=== PATIENT | male | born 1985 | race Caucasian/White ===

== ENCOUNTER 2019-07-30 20:19 | Emergency (ER) | payer MEDICAID ==
[~2019-07-30] VITALS: Ht 175.3 cm; Wt 61.2 kg
[2019-07-30 20:23] VITALS: BP_SYST 121
--- NOTE | 2019-07-30 20:34 | NUR ---
Patient to ER bed 20 for evaluation. Side rails up. Report given to Merlyn BONILLA.
--- NOTE | 2019-07-30 20:40 | NUR ---
ER at bedside examining patient.
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
--- NOTE | 2019-07-30 20:45 | NUR ---
patient has a large laceration from the top of his forehead, approx 13 cm x 3cm x 0.5 cm. laceration has stopped bleeding. [address] Talbot
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
[2019-07-30] MEDS ORDERED: LIDOCAINE 1% 10 MG/ML, 20 ML MDV INJ ONE (22:15)
[2019-07-30] MEDS ORDERED: BACITRACIN ZINC 15 GM TOPICAL OINTMENT TP ONE (22:30)
[2019-07-30] MEDS ORDERED: BACITRACIN 1 GM OINT TP ONE (22:44)
[2019-07-30 22:50] VITALS: BP_SYST 121
--- NOTE | 2019-07-30 22:50 | NUR ---
Patient given written and verbal discharge instructions and verbalizes understanding. ER MD discussed with patient the results and treatment provided. Patient in stable condition. ID arm band removed. IV catheter removed intact and dressing applied, no active bleeding. Rx of [place]-5, Kelflex given. Patient educated on pain management and to follow up with PMD.Pain Scale 0/10. Opportunity for questions provided and answered. Medication side effect fact sheet provided.
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
== END 2019-07-30 23:33 | disposition home or self-care (01) ==
LOC: SED 20:19
DX: S01.81XA Laceration without foreign body of other part of head, initial encounter (principal); M19.90 Unspecified osteoarthritis, unspecified site; W25.XXXA Contact with sharp glass, initial encounter; Y93.89 Activity, other specified; Y92.89 Other specified places as the place of occurrence of the external cause; Y99.8 Other external cause status
CPT/HCPCS: 70450-TC; 72125-TC; 99284

== ENCOUNTER 2019-08-14 23:53 | Emergency (ER) | payer MEDICAID ==
[~2019-08-14] VITALS: Ht 175.3 cm; Wt 61.2 kg
--- NOTE | 2019-08-15 | NUR ---
Patient to ER bed 4 to gown for evaluation. Side rails up.
[2019-08-15 00:10] VITALS: BP_SYST 117
--- NOTE | 2019-08-15 00:30 | NUR ---
Dr. Allen bedside for Pt eval
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
[2019-08-15 01:07] VITALS: BP_SYST 117
--- NOTE | 2019-08-15 01:08 | NUR ---
Patient given written and verbal discharge instructions and verbalizes understanding. ER MD discussed with patient the results and treatment provided. Patient in stable condition. ID arm band removed. Patient educated on pain management and to follow up with PMD. Pain Scale 0. Opportunity for questions provided and answered. Medication side effect fact sheet provided.
== END 2019-08-15 01:08 | disposition home or self-care (01) ==
LOC: SED 23:53
DX: S01.81XD Laceration without foreign body of other part of head, subsequent encounter (principal); M19.90 Unspecified osteoarthritis, unspecified site; W25.XXXD Contact with sharp glass, subsequent encounter
CPT/HCPCS: 99281

== ENCOUNTER 2019-09-23 23:28 | Emergency (ER) | payer MEDICAID ==
[~2019-09-23] VITALS: Ht 175.3 cm; Wt 62.6 kg
[2019-09-23 23:30] VITALS: BP_SYST 140
--- NOTE | 2019-09-23 23:30 | NUR ---
Patient to ER bed 4 to gown for evaluation. Side rails up.
--- NOTE | 2019-09-23 23:36 | NUR ---
ER at bedside examining patient.
[2019-09-23] MEDS ORDERED: NACL 0.9% 1,000 ML IV ONE (23:38)
--- NOTE | 2019-09-23 23:43 | NUR ---
Dr. Mccurdy bedside for Pt eval
[2019-09-23] MEDS ORDERED: ONDANSETRON HCL 4 MG/2 ML VIAL IVP ONE (23:45)
--- NOTE | 2019-09-23 23:45 | NUR ---
Pt BIB family to ED C/O abd radiating to back for 3 weeks with some nausea as well No other injuries and or complaints noted VSS no s/s of acute distress Resting on gurney rails up
[2019-09-24 00:26] LABS: BASOPHILS % (AUTO) 0.2 % (0.0-2.0); EOSINOPHILS % (AUTO) 0.1 % (0.0-4.0); HEMATOCRIT 42.9 % (36-54); HEMOGLOBIN 14.4 g/dL (14.0-18.0); LYMPHOCYTES # (AUTO) 3.7 K/uL (1.0-5.5); LYMPHOCYTES % (AUTO) 30.9 % (20.5-51.5); MEAN CORPUSCULAR HEMOGLOBIN 32 pg (27-31); MEAN CORPUSCULAR HGB CONC 34 % (32-36); MEAN CORPUSCULAR VOLUME 95 fL (79.0-98.0); MONOCYTES % (AUTO) 8.4 % (1.7-9.3); NEUTROPHILS # (AUTO) 7.2 K/uL (1.8-7.7); NEUTROPHILS % (AUTO) 60.4 % (40.0-70.0); PLATELET COUNT (AUTO) 336 K/uL (130-430); RED CELL DISTRIBUTION WIDTH 13.8 % (9.0-15.0)
[2019-09-24 00:40] LABS: CALCIUM 9.5 mg/dL (8.4-11.0); CREATININE 0.73 mg/dL (0.55-1.30); POTASSIUM 3.5 mmol/L (3.5-5.1)
[2019-09-24 00:45] LABS: PROTHROMBIN TIME 10.4 SECS (9.5-12.5)
[2019-09-24 00:46] LABS: ALBUMIN 4.6 g/dL (3.4-4.8); TOTAL BILIRUBIN 0.3 mg/dL (0.0-1.0)
--- NOTE | 2019-09-24 01:00 | NUR ---
Pt resting comfortably in bed, no signs of acute distress. Will cont. to monitor.
[2019-09-24 01:47] LABS: BILIRUBIN,URINE NEGATIVE (NEGATIVE); BLOOD, URINE 1+ (NEGATIVE); CLARITY/URINE CLEAR (CLEAR); COLOR,URINE YELLOW (YELLOW); GLUCOSE,URINE NEGATIVE (NEGATIVE); KETONES,URINE NEGATIVE (NEGATIVE); LEUKOCYTE ESTERASE ,URINE NEGATIVE (NEGATIVE); NITRITE, URINE NEGATIVE (NEGATIVE); PROTEIN URINE NEGATIVE (NEGATIVE); UROBILINOGEN,URINE 0.2 (0.2-1.0)
[2019-09-24 01:51] LABS: BACTERIA,URINE FEW /HPF (None Seen); WBC,URINE 0-3 /HPF (0-3)
--- NOTE | 2019-09-24 02:00 | NUR ---
Pt resting comfortably in bed, no signs of acute distress. Will cont. to monitor.
--- NOTE | 2019-09-24 03:00 | NUR ---
Pt resting comfortably in bed, no signs of acute distress. Will cont. to monitor.
[2019-09-24 04:59] VITALS: BP_SYST 140
--- NOTE | 2019-09-24 04:59 | NUR ---
Patient given written and verbal discharge instructions and verbalizes understanding. ER MD Dr. Mccurdy discussed with patient the results and treatment provided. Patient in stable condition. ID arm band removed. IV catheter removed intact and dressing applied, no active bleeding. Patient educated on pain management and to follow up with PMD. Pain Scale 0/10. Opportunity for questions provided and answered. Medication side effect fact sheet provided.
== END 2019-09-24 04:59 | disposition home or self-care (01) ==
LOC: SED 23:28
DX: N50.89 Other specified disorders of the male genital organs (principal); R10.84 Generalized abdominal pain; M19.90 Unspecified osteoarthritis, unspecified site; K51.90 Ulcerative colitis, unspecified, without complications
CPT/HCPCS: 36415; 74176; 80053; 81000; 83690; 85025; 85610; 85730; 96374; 99284; J2405; J7030

== ENCOUNTER 2021-06-09 19:34 | Emergency (ER) | payer MEDICAID ==
[~2021-06-09] VITALS: Ht 175.3 cm; Wt 68.5 kg
[2021-06-09 19:40] VITALS: BP_SYST 108
[2021-06-09] MEDS ORDERED: AMOX-423 PO (23:54)
[2021-06-10 00:02] VITALS: BP_SYST 108
== END 2021-06-10 00:05 | disposition home or self-care (01) ==
LOC: SED 19:34
DX: S61.411A Laceration without foreign body of right hand, initial encounter (principal); S61.451A Open bite of right hand, initial encounter; W61.91XA Bitten by other birds, initial encounter; Y93.89 Activity, other specified; Y92.89 Other specified places as the place of occurrence of the external cause; Y99.8 Other external cause status
CPT/HCPCS: 99283

== ENCOUNTER 2021-07-03 23:30 | Emergency (ER) | payer MEDICAID ==
[~2021-07-03] VITALS: Ht 175.3 cm; Wt 68.5 kg
[~2021-07-03 23:30] MED LIST: AMOX-423 PO
[2021-07-03 23:43] VITALS: BP_SYST 151
--- NOTE | 2021-07-04 00:39 | NUR ---
Patient ambulatory to chair 1 for evaluation
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
--- NOTE | 2021-07-04 00:55 | NUR ---
ER Dr. Franz at bedside examining patient.
[2021-07-04] MEDS ORDERED: PRED20TA PO (01:01)
[2021-07-04] MEDS ORDERED: predniSONE 20 MG TABLET PO ONE (01:15)
[2021-07-04 01:27] VITALS: BP_SYST 151
--- NOTE | 2021-07-04 01:27 | NUR ---
Patient given written and verbal discharge instructions and verbalizes understanding. ER MD discussed with patient the results and treatment provided. Patient in stable condition. ID arm band removed. Rx of Prednisone given. Patient educated on pain management and to follow up with PMD. Pain Scale 0. Opportunity for questions provided and answered. Medication side effect fact sheet provided.
[2021-07-04] MEDS ORDERED: PANTOPRAZOLE SODIUM 40 MG TAB PO ONE (01:30)
== END 2021-07-04 01:27 | disposition home or self-care (01) ==
LOC: SED 23:30
DX: S64.01XA Injury of ulnar nerve at wrist and hand level of right arm, initial encounter (principal); Z79.899 Other long term (current) drug therapy; W45.8XXA Other foreign body or object entering through skin, initial encounter; Y93.89 Activity, other specified; Y92.89 Other specified places as the place of occurrence of the external cause; Y99.8 Other external cause status
CPT/HCPCS: 29125; 99283; J7512

== ENCOUNTER 2022-01-07 13:16 | Emergency (ER) | payer MEDICAID ==
[~2022-01-07] VITALS: Ht 175.3 cm; Wt 75.7 kg
[~2022-01-07 13:16] MED LIST changes: +PRED20TA PO
[2022-01-07 13:25] VITALS: BP_SYST 119
--- NOTE | 2022-01-07 13:25 | NUR ---
Placed in room 3 . Placed on school bus monitor, blood pressure machine and pulse oximeter. To gown for exam. Side rails up. Report given to IRENE KENNEY.
--- NOTE | 2022-01-07 13:43 | NUR ---
MD MENON AT BEDSIDE ASSESSING PT. Addendum: 01/07/22 at 1421 by [email or web address] MD LATHAM IS SEEING PT. MD MENON DID NOT ASSESS PT.
--- NOTE | 2022-01-07 14:21 | NUR ---
MD LATHAM ASSESSING PT.
--- NOTE | 2022-01-07 15:49 | NUR ---
PT TAKEN TO ULTRASOUND.
[2022-01-07 16:07] LABS: BILIRUBIN,URINE NEGATIVE (NEGATIVE); BLOOD, URINE NEGATIVE (NEGATIVE); CLARITY/URINE CLEAR (CLEAR); COLOR,URINE YELLOW (YELLOW); GLUCOSE,URINE NEGATIVE (NEGATIVE); KETONES,URINE NEGATIVE (NEGATIVE); LEUKOCYTE ESTERASE ,URINE NEGATIVE (NEGATIVE); NITRITE, URINE NEGATIVE (NEGATIVE); PH,URINE 7.5 (5.0-8.0); PROTEIN URINE NEGATIVE (NEGATIVE); UROBILINOGEN,URINE 0.2 (0.2-1.0)
[2022-01-07 17:23] VITALS: BP_SYST 119
--- NOTE | 2022-01-07 17:24 | NUR ---
Patient given written and verbal discharge instructions and verbalizes understanding. ER MD discussed with patient the results and treatment provided. Patient in stable condition. ID arm band removed. NO Rx given. Patient educated on pain management and to follow up with PMD. Pain Scale 0/10. Opportunity for questions provided and answered. Medication side effect fact sheet provided.
== END 2022-01-07 17:24 | disposition home or self-care (01) ==
LOC: SED 13:16
DX: N50.89 Other specified disorders of the male genital organs (principal); J45.909 Unspecified asthma, uncomplicated; Z87.19 Personal history of other diseases of the digestive system; Z79.52 Long term (current) use of systemic steroids; Z79.899 Other long term (current) drug therapy
CPT/HCPCS: 76870-TC; 81003; 99284

== ENCOUNTER 2022-12-08 00:54 | Emergency (ER) | payer MEDICAID ==
[~2022-12-08] VITALS: Ht 175.3 cm; Wt 77.1 kg
[2022-12-08 01:10] VITALS: BP_SYST 110
--- NOTE | 2022-12-08 01:18 | NUR ---
Pt placed in ER bed 3. Report given to IRENE Finch.
--- NOTE | 2022-12-08 01:20 | NUR ---
BRANDYN Hubbard at bedside examining patient.
[2022-12-08 02:21] LABS: CALCIUM 8.8 mg/dL (8.4-11.0); CREATININE 0.77 mg/dL (0.55-1.30)
[2022-12-08 02:26] LABS: ALBUMIN 3.9 g/dL (3.4-4.8); TOTAL BILIRUBIN 0.2 mg/dL (0.0-1.0)
[2022-12-08 02:33] LABS: PROTHROMBIN TIME 10.6 SECS (9.5-12.5)
[2022-12-08 02:35] LABS: BASOPHILS % (AUTO) 0.3 % (0.0-2.0); EOSINOPHILS # (AUTO) 0.1 K/uL (0.0-0.4); EOSINOPHILS % (AUTO) 0.7 % (0.0-4.0); HEMATOCRIT 40.2 % (36-54); HEMOGLOBIN 13.3 g/dL (14.0-18.0); LYMPHOCYTES # (AUTO) 4.1 K/uL (1.0-5.5); LYMPHOCYTES % (AUTO) 39.2 % (20.5-51.5); MEAN CORPUSCULAR HEMOGLOBIN 30 pg (27-31); MEAN CORPUSCULAR HGB CONC 33 % (32-36); MEAN CORPUSCULAR VOLUME 89 fL (79.0-98.0); MONOCYTES % (AUTO) 9.4 % (1.7-9.3); NEUTROPHILS # (AUTO) 5.3 K/uL (1.8-7.7); NEUTROPHILS % (AUTO) 50.4 % (40.0-70.0); PLATELET COUNT (AUTO) 209 K/uL (130-430); RED BLOOD CELL COUNT(AUTO) 4.51 MIL/uL (4.2-6.2); RED CELL DISTRIBUTION WIDTH 13.9 % (9.0-15.0); WHITE BLOOD COUNT (AUTO) 10.5 K/uL (4.8-10.8)
[2022-12-08] MEDS ORDERED: ONDA-8 TL (02:48)
[2022-12-08] MEDS ORDERED: OMEP40CA20 PO (02:48)
[2022-12-08 03:20] VITALS: BP_SYST 112
--- NOTE | 2022-12-08 03:21 | NUR ---
Pt C/O abdominal pain w/ bausea, vomitting Pt DC per MD's order DC instructionstions given to pt Pt verbalized understanding AOX4 VSS Able to make needs known NAD at this time Pt exited ED in stable gait
== END 2022-12-08 03:19 | disposition home or self-care (01) ==
LOC: SED 00:54
DX: K92.0 Hematemesis (principal); J45.909 Unspecified asthma, uncomplicated; Z87.19 Personal history of other diseases of the digestive system; Z79.899 Other long term (current) drug therapy
CPT/HCPCS: 36415; 80053; 83690; 85025; 85610-TC; 85730-TC; 99283

== ENCOUNTER 2024-01-07 23:38 | Emergency (ER) | payer MEDICAID ==
[~2024-01-07] VITALS: Ht 175.3 cm; Wt 81.6 kg
[~2024-01-07 23:38] MED LIST changes: +OMEP40CA20 PO; +ONDA-8 TL
[2024-01-07 23:44] VITALS: BP_SYST 137; PULSE 77; RESP 20; TEMP 97.7; O2SAT 99
[2024-01-08] MEDS: MAG-AL HYDROX/SIMETH 30 ML UDC PO ONE (00:14)
[2024-01-08] MEDS: FAMOTIDINE 20 MG TABLET PO ONE (00:14)
[2024-01-08] MEDS: ONDANSETRON 4 MG ODT TAB PO ONE (00:14)
[2024-01-08 00:26] LABS: BASOPHILS % (AUTO) 0.4 % (0.0-2.0); EOSINOPHILS % (AUTO) 0.3 % (0.0-4.0); HEMATOCRIT 43.4 % (36-54); HEMOGLOBIN 14.9 g/dL (14.0-18.0); LYMPHOCYTES # (AUTO) 2.6 K/uL (1.0-5.5); LYMPHOCYTES % (AUTO) 28.3 % (20.5-51.5); MEAN CORPUSCULAR HEMOGLOBIN 30 pg (27-31); MEAN CORPUSCULAR HGB CONC 34 % (32-36); MEAN CORPUSCULAR VOLUME 88 fL (79.0-98.0); MONOCYTES # (AUTO) 0.8 K/uL (0.0-1.0); MONOCYTES % (AUTO) 8.7 % (1.7-9.3); NEUTROPHILS # (AUTO) 5.7 K/uL (1.8-7.7); NEUTROPHILS % (AUTO) 62.3 % (40.0-70.0); PLATELET COUNT (AUTO) 247 K/uL (130-430); RED BLOOD CELL COUNT(AUTO) 4.92 MIL/uL (4.2-6.2); RED CELL DISTRIBUTION WIDTH 13.5 % (9.0-15.0); WHITE BLOOD COUNT (AUTO) 9.1 K/uL (4.8-10.8)
[2024-01-08 00:35] LABS: ANION GAP 9 (5-15); CALCIUM 8.8 mg/dL (8.4-11.0); CARBON DIOXIDE 27 mmol/L (23-29); CHLORIDE 105 mmol/L (98-107); CREATININE 0.92 mg/dL (0.55-1.30); GFR AFRICAN AMERICAN 119 mL/min (>90); GLUCOSE 92 mg/dL (74-106); POTASSIUM 3.6 mmol/L (3.5-5.1); SODIUM SERUM 141 mmol/L (136-145); UREA NITROGEN, BLOOD 12 mg/dL (8-21)
[2024-01-08 00:41] LABS: ALANINE AMINOTRANSFERASE 26 U/L (12-78); ASPARTATE AMINOTRANSFERASE 16 U/L (10-37); BILIRUBIN,DIRECT 0.1 mg/dL (0.0-0.3); LIPASE 50 U/L (16-77); TOTAL BILIRUBIN 0.6 mg/dL (0.0-1.0); TOTAL PROTEIN, SERUM 7.6 g/dL (6.4-8.3)
[2024-01-08 00:49] LABS: GFR NON AFRICAN-AMERICAN 98 mL/min (>90)
[2024-01-08] MEDS ORDERED: FAMO20TA8 PO (00:56)
[2024-01-08] MEDS ORDERED: ONDA-8 TL (00:56)
[2024-01-08 01:17] VITALS: RESP 16; TEMP 98.3
[2024-01-08 01:22] VITALS: BP_SYST 125; PULSE 66; O2SAT 96
== END 2024-01-08 01:22 | disposition home or self-care (01) ==
LOC: SED 23:38
DX: R10.13 Epigastric pain (principal); R11.2 Nausea with vomiting, unspecified; F10.90 Alcohol use, unspecified, uncomplicated
CPT/HCPCS: 99285; 71045; 80076; 80048; 83690; 85025; 84484; 36415; 93005; Q0162